=== PATIENT | male | born 1945 | race Caucasian/White ===

== ENCOUNTER 2016-07-23 23:08 | Emergency (ER) | payer MEDICARE, BC ==
[2016-07-24] MEDS ORDERED: [UNRECOGNIZED DRUG - OTHER] IM.VACC ONE (00:05)
[2016-07-24] MEDS ORDERED: [UNRECOGNIZED DRUG - OTHER] IM.VACC ONE (00:05)
[2016-07-24] MEDS ORDERED: RABIES VACCINE IM.VACC ONE (00:55)
== END 2016-07-24 02:21 | disposition home or self-care (01) ==
LOC: ER 23:08
DX: S61.451A Open bite of right hand, initial encounter (principal); W55.01XA Bitten by cat, initial encounter; Y92.019 Unspecified place in single-family (private) house as the place of occurrence of the external cause; L03.113 Cellulitis of right upper limb; Z23 Encounter for immunization
CPT/HCPCS: 90375; 90471; 90675; 96372